=== PATIENT | male | born 1935 | race Caucasian/White ===

== ENCOUNTER 2017-03-25 10:00 | Day surgery (SDC) | payer MEDICARE ==
[~2017-03-25] VITALS: Ht 175.3 cm; Wt 83.8 kg
[~2017-03-25 10:00] MED LIST: ASPIRIN E.C. 8181 MG PO; CALCIUM 500500 M2 PO; CARDI-OMEGA1000 MG PO; LEVAQUIN 750MG750 M1 PO; MULTIPLE VITAMI1 CAP PO; NATURAL E400 IU PO; NORCO 325 MG-51 TAB PO; NORCO 325 MG-7.1 TAB PO; OSCAL 500 TAB500 MG PO; PRILOSEC 20MG20 MG PO; TYLENOL 8 HR PO; VITAMIN B1225 MCG PO; VITAMIN D32000 IU PO
[2017-03-25] MEDS ORDERED: B-12 500 MCG (10:37)
[2017-03-25 10:47] VITALS: BP 153/81; PULSE 70; TEMP 97.7
[2017-03-25 13:30] VITALS: BP 127/62; PULSE 60
[2017-03-25 13:45] VITALS: BP 125/59; PULSE 60
[2017-03-25 14:00] VITALS: BP 130/68; PULSE 59
== END 2017-03-25 14:38 | disposition home or self-care (01) ==
LOC: SDCO 10:00
DX: C50.021 Malignant neoplasm of nipple and areola, right male breast (principal); Z85.038 Personal history of other malignant neoplasm of large intestine; I10 Essential (primary) hypertension; Z96.649 Presence of unspecified artificial hip joint; Z80.3 Family history of malignant neoplasm of breast; Z95.0 Presence of cardiac pacemaker; R00.1 Bradycardia, unspecified
CPT/HCPCS: J0690; J1100; J2704; J3010; J7120

== ENCOUNTER → 2017-04-08 | Outpatient (CLI) | payer MEDICARE ==
[~2017-04-08] MED LIST changes: +B-12 500 MCG
== END ==
LOC: COL.RAD 08:11
DX: C50.921 Malignant neoplasm of unspecified site of right male breast (principal)
CPT/HCPCS: A9541

== ENCOUNTER 2017-04-09 06:37 | Day surgery (SDC) | payer MEDICARE ==
[~2017-04-09] VITALS: Ht 175.3 cm; Wt 83.2 kg
[2017-04-09] VITALS (9 sets, daily range): BP systolic 119–145; BP diastolic 54–79; PULSE 59–82; TEMP 97.5–97.8
[2017-04-10 02:31] VITALS: BP 114/60; PULSE 62; TEMP 97.8
[2017-04-10 06:27] VITALS: BP 128/61; PULSE 63; TEMP 98.5
[2017-04-10 10:05] VITALS: BP 140/78; PULSE 88; TEMP 98.6
== END 2017-04-10 13:46 | disposition home or self-care (01) ==
LOC: SDCO 06:37 → SURG 15:00 → SDCO 04-10 13:46
DX: C50.021 Malignant neoplasm of nipple and areola, right male breast (principal); C77.3 Secondary and unspecified malignant neoplasm of axilla and upper limb lymph nodes
CPT/HCPCS: OP; J0690; J1100; J1885; J2250; J2405; J2704; J3010; J7120; Q9968

== ENCOUNTER 2017-04-30 05:55 | Day surgery (SDC) | payer MEDICARE ==
[~2017-04-30] VITALS: Ht 175.3 cm; Wt 83.2 kg
[2017-04-30 06:23] VITALS: BP 141/72; PULSE 84; TEMP 97.8
[2017-04-30 09:23] VITALS: BP 107/68; PULSE 62; TEMP 97.6
[2017-04-30 09:55] VITALS: BP 121/72; PULSE 58
[2017-04-30 10:10] VITALS: BP 114/82; PULSE 61
== END 2017-04-30 11:30 | disposition home or self-care (01) ==
LOC: SDCO 05:55
DX: C50.921 Malignant neoplasm of unspecified site of right male breast (principal); I10 Essential (primary) hypertension; I48.91 Unspecified atrial fibrillation; I49.5 Sick sinus syndrome; K21.9 Gastro-esophageal reflux disease without esophagitis; M19.90 Unspecified osteoarthritis, unspecified site; Z90.49 Acquired absence of other specified parts of digestive tract; Z90.11 Acquired absence of right breast and nipple; Z95.0 Presence of cardiac pacemaker; Z96.643 Presence of artificial hip joint, bilateral; Z85.038 Personal history of other malignant neoplasm of large intestine; Z80.3 Family history of malignant neoplasm of breast
CPT/HCPCS: C1788; J0690; J1644; J2704; J3010; J7120

== ENCOUNTER → 2017-05-13 | Outpatient (CLI) | payer MEDICARE | LOC: COL.VAS 09:13 | DX: Z01.810 Encounter for preprocedural cardiovascular examination (principal); C50.021 Malignant neoplasm of nipple and areola, right male breast; Z79.899 Other long term (current) drug therapy; I35.1 Nonrheumatic aortic (valve) insufficiency; I35.8 Other nonrheumatic aortic valve disorders; Z95.0 Presence of cardiac pacemaker ==

== ENCOUNTER → 2017-05-19 | Outpatient (CLI) | payer MEDICARE | LOC: COL.VAS 09:50 | DX: M79.89 Other specified soft tissue disorders (principal); Z85.3 Personal history of malignant neoplasm of breast ==

== ENCOUNTER → 2017-07-30 | Outpatient (CLI) | payer MEDICARE | LOC: COL.VAS 07:49 | DX: Z51.81 Encounter for therapeutic drug level monitoring (principal); I35.1 Nonrheumatic aortic (valve) insufficiency; C50.929 Malignant neoplasm of unspecified site of unspecified male breast; Z95.0 Presence of cardiac pacemaker; Z79.899 Other long term (current) drug therapy ==

== ENCOUNTER 2017-08-22 09:30 | Outpatient (RCR) | payer MEDICARE ==
[2017-10-13] MEDS ORDERED: NEURONTIN300 MG/CAP PO (11:01)
[2017-10-13] MEDS ORDERED: TAMOXIFEN CITRA20 MG PO (11:02)
[2017-10-13] MEDS ORDERED: CEPHALEXIN250 M1 PO (12:27)
[2017-10-13] MEDS ORDERED: NORCO 325 MG-51 TAB PO (12:27)
== END 2017-10-30 | disposition home or self-care (01) ==
LOC: MKS.ESL.PT
DX: I97.2 Postmastectomy lymphedema syndrome (principal); C50.921 Malignant neoplasm of unspecified site of right male breast; Z92.21 Personal history of antineoplastic chemotherapy; Z90.11 Acquired absence of right breast and nipple; Z95.0 Presence of cardiac pacemaker
CPT/HCPCS: G8990-GP; G8991-GP

== ENCOUNTER 2017-10-13 10:38 | Emergency (ER) | payer MEDICARE ==
[~2017-10-13] VITALS: Ht 175.3 cm; Wt 83.2 kg
[2017-10-13 10:43] VITALS: TEMP 99.5
[2017-10-13] MEDS ORDERED: NEURONTIN300 MG/CAP PO (11:01)
[2017-10-13] MEDS ORDERED: TAMOXIFEN CITRA20 MG PO (11:02)
[2017-10-13] MEDS ORDERED: NORCO 325 MG-51 TAB PO (12:27)
[2017-10-13] MEDS ORDERED: CEPHALEXIN250 M1 PO (12:27)
[2017-10-13 13:07] VITALS: BP 140/64; PULSE 63
== END 2017-10-13 13:04 | disposition home or self-care (01) ==
LOC: COL.ER 10:38
DX: S61.412A Laceration without foreign body of left hand, initial encounter (principal); S61.215A Laceration without foreign body of left ring finger without damage to nail, initial encounter; Z23 Encounter for immunization; Z85.3 Personal history of malignant neoplasm of breast; Z85.038 Personal history of other malignant neoplasm of large intestine; Z87.891 Personal history of nicotine dependence; Z95.0 Presence of cardiac pacemaker; W31.2XXA Contact with powered woodworking and forming machines, initial encounter; Y92.009 Unspecified place in unspecified non-institutional (private) residence as the place of occurrence of the external cause

== ENCOUNTER → 2017-10-24 | Outpatient (CLI) | payer MEDICARE ==
[~2017-10-24] MED LIST changes: +CEPHALEXIN250 M1 PO; +NEURONTIN300 MG/CAP PO; +TAMOXIFEN CITRA20 MG PO
== END ==
LOC: COL.VAS 09:51
DX: Z01.810 Encounter for preprocedural cardiovascular examination (principal); C50.021 Malignant neoplasm of nipple and areola, right male breast; I08.1 Rheumatic disorders of both mitral and tricuspid valves; Z95.0 Presence of cardiac pacemaker

== ENCOUNTER → 2018-01-14 | Outpatient (CLI) | payer MEDICARE | LOC: COL.VAS 09:49 | DX: I08.1 Rheumatic disorders of both mitral and tricuspid valves (principal); Z92.21 Personal history of antineoplastic chemotherapy ==

== ENCOUNTER → 2018-01-29 | Outpatient (RCR) | payer MEDICARE | END | disposition home or self-care (01) | LOC: MKS.ESL.PT | DX: I97.89 Other postprocedural complications and disorders of the circulatory system, not elsewhere classified (principal); Z85.3 Personal history of malignant neoplasm of breast; Z98.890 Other specified postprocedural states | CPT/HCPCS: G8990-GP; G8991-GP ==

== ENCOUNTER 2018-04-29 10:45 | Outpatient (RCR) | payer MEDICARE | END 2018-05-12 | disposition home or self-care (01) | LOC: MKS.ESL.PT | DX: I89.0 Lymphedema, not elsewhere classified (principal); C50.021 Malignant neoplasm of nipple and areola, right male breast | CPT/HCPCS: G8990-GP; G8991-GP ==

== ENCOUNTER 2019-01-04 09:26 | Outpatient (RCR) | payer MEDICARE | END 2019-03-09 10:24 | disposition home or self-care (01) | LOC: MKS.ESL.PT 09:26 | DX: I89.0 Lymphedema, not elsewhere classified (principal); Z85.3 Personal history of malignant neoplasm of breast; Z98.890 Other specified postprocedural states; Z89.012 Acquired absence of left thumb; Z92.21 Personal history of antineoplastic chemotherapy; Z95.0 Presence of cardiac pacemaker ==

== ENCOUNTER 2020-09-06 08:45 | Outpatient (RCR) | payer MEDICARE | END 2020-09-19 | disposition home or self-care (01) | LOC: MKS.ESL.PT | DX: C50.021 Malignant neoplasm of nipple and areola, right male breast (principal); I89.0 Lymphedema, not elsewhere classified ==

== ENCOUNTER 2020-11-13 14:45 | Outpatient (RCR) | payer MEDICARE | END 2020-11-20 | disposition home or self-care (01) | LOC: MKS.ESL.PT | DX: I89.0 Lymphedema, not elsewhere classified (principal); Z85.3 Personal history of malignant neoplasm of breast; Z98.890 Other specified postprocedural states ==

== ENCOUNTER 2021-01-08 12:59 | Outpatient (RCR) | payer MEDICARE | END 2021-04-08 | disposition home or self-care (01) | LOC: MKS.ESL.PT | DX: I89.0 Lymphedema, not elsewhere classified (principal); Z85.3 Personal history of malignant neoplasm of breast; Z98.890 Other specified postprocedural states ==

== ENCOUNTER 2021-11-18 09:16 | Emergency (ER) | payer MEDICARE ==
[~2021-11-18] VITALS: Ht 172.7 cm; Wt 95.5 kg
[2021-11-18 09:24] VITALS: TEMP 98.2
[2021-11-18 10:26] LABS: BASO # 0.1 K/mm3 (0.0-0.2); BASO % 1.1 % (0.0-2.0); EOS # 0.2 K/mm3 (0.0-0.7); EOS % 3.6 % (0.0-4.0); GRAN # 4.5 K/mm3 (1.4-6.5); GRAN % 68.2 % (42.2-75.2); HEMATOCRIT 37.9 % (42.0-52.0); HEMOGLOBIN 12.7 g/dl (13.5-18.0); LYMPH # 1.1 K/mm3 (1.2-3.4); LYMPH % 16.3 % (20.0-51.0); MEAN CELL VOLUME 96 fl (80.0-100.0); MEAN CORPUSCULAR HEMOGLOBIN 32 pg (27-31); MEAN CORPUSCULAR HGB CONC 34 g/dl (33.0-37.0); MEAN PLATELET VOLUME 10.1 fl (7.4-10.4); MONO # 0.7 K/mm3 (0.1-0.6); MONO % 10.2 % (1.7-9.3); PLATELET COUNT 249 K/mm3 (130-400); RED BLOOD COUNT 3.96 M/mm3 (4.20-5.60); REDCELL DISTRIBUTION WIDTH-CV 12.8 % (11.5-14.5)
[2021-11-18 10:44] LABS: BILIRUBIN,TOTAL 0.4 mg/dL (0.2-1.2); CALCIUM 9.5 mg/dL (8.4-10.2); CREATININE, serum 1.09 mg/dL (0.72-1.25); POTASSIUM 4.4 mmol/L (3.5-4.5); TOTAL PROTEIN 7.1 gm/dL (6.2-8.1)
[2021-11-18 10:49] LABS: TROPONIN-I 0.021 ng/mL (0.00-0.033)
[2021-11-18 11:25] VITALS: BP 152/85; PULSE 60
== END 2021-11-18 11:29 | disposition home or self-care (01) ==
LOC: COL.ER 09:16
PROVIDERS: Family Medicine
DX: I10 Essential (primary) hypertension (principal); F41.9 Anxiety disorder, unspecified; G62.9 Polyneuropathy, unspecified; Z79.899 Other long term (current) drug therapy; Z87.891 Personal history of nicotine dependence

== ENCOUNTER 2023-02-07 08:05 | Day surgery (SDC) | payer MEDICARE ==
[~2023-02-07] VITALS: Ht 175.3 cm; Wt 91.2 kg
[~2023-02-07 08:05] MED LIST changes: +ASPIRIN 81M81 MG/TA2 PO; -B-12 500 MCG; +BETAPACE 80MG80 MG PO; -CARDI-OMEGA1000 MG PO; +COSOPT 2%-0.5%10 ML OU; -MULTIPLE VITAMI1 CAP PO; +MULTIPLE VITAMI1 TA5 PO; +OMEGA-3 1000 MG1 CAP PO; +PHARMASSURE ZIN50 MG PO; +VITAMIN B12 781 TAB PO; +VITAMIN D 400400 IU PO; -VITAMIN D32000 IU PO; +XALATAN EYE DROPS OD
[2023-02-07 08:24] VITALS: BP 136/79; PULSE 79; TEMP 98.1
[2023-02-07 10:00] VITALS: BP 104/56; PULSE 66; TEMP 98.1
--- NOTE | 2023-02-07 10:00 | NUR ---
1000 PATIENT RETURNS TO ROOM 9 VIA CART. PATIENT IS ALERT AND ORIENTED. PATIENT AMBULATES TO RECLINER WITH THE ASSISTANCE OF 2 NURSES. RESPIRATIONS EVEN AND UNLABORED. VITAL SIGNS OBTAINED. PATIENT DAUGHTER AND IN ROOM. PATIENT REQUESTED A MUFFIN AND COFFEE, NO DIFFICULTIES SWALLOWING. 1025 DISCHARGE INSTRUCTIONS REVIEWED WITH PATIENT AND PATIENT FAMILY. BOTH VERBALIZED UNDERSTANDING. 1030 THIS NURSE DE ACCESSED PORT, FIRST BY FLUSHING WITH NS. NO BLEEDING NOTED AT SIGHT. 1045 DOCTOR IN TO SPEAK WITH PATIENT. 1050 PATIENT DISCHARGED FROM UNIT VIA WHEELCHAIR IN STABLE CONDITION.
[2023-02-07 10:15] VITALS: BP 121/62; PULSE 64
[2023-02-07 10:30] VITALS: BP 127/75; PULSE 65
== END 2023-02-07 10:50 | disposition home or self-care (01) ==
LOC: SDCO 08:05
DX: K62.6 Ulcer of anus and rectum (principal); K62.5 Hemorrhage of anus and rectum; K21.9 Gastro-esophageal reflux disease without esophagitis; Z85.038 Personal history of other malignant neoplasm of large intestine; Z98.0 Intestinal bypass and anastomosis status; Z92.3 Personal history of irradiation; Z87.891 Personal history of nicotine dependence
CPT/HCPCS: J2704; J7120

== ENCOUNTER 2023-11-12 05:57 | Observation (INO) | payer MEDICARE ==
[2023-11-12] VITALS (11 sets, daily range): BP systolic 122–155; BP diastolic 61–84; PULSE 60–93; TEMP 97.6–98.3
[~2023-11-12] VITALS: Ht 172.7 cm; Wt 89.9 kg
[~2023-11-12 05:57] MED LIST changes: -XALATAN EYE DROPS OD; +XALATAN EYE DROPS OU
[2023-11-12 06:51] LABS: BASO # 0.1 K/mm3 (0.0-0.2); BASO % 1.1 % (0.0-2.0); EOS # 0.2 K/mm3 (0.0-0.7); EOS % 2.2 % (0.0-4.0); GRAN # 6.4 K/mm3 (1.4-6.5); GRAN % 78.9 % (42.2-75.2); HEMATOCRIT 35.5 % (42.0-52.0); HEMOGLOBIN 11.6 g/dl (13.5-18.0); LYMPH # 0.7 K/mm3 (1.2-3.4); LYMPH % 8.4 % (20.0-51.0); MEAN CELL VOLUME 99 fl (80.0-100.0); MEAN CORPUSCULAR HEMOGLOBIN 32 pg (27-31); MEAN CORPUSCULAR HGB CONC 33 g/dl (33.0-37.0); MEAN PLATELET VOLUME 10.7 fl (7.4-10.4); MONO # 0.8 K/mm3 (0.1-0.6); MONO % 9.2 % (1.7-9.3); PLATELET COUNT 260 K/mm3 (130-400); RED BLOOD COUNT 3.59 M/mm3 (4.20-5.60); REDCELL DISTRIBUTION WIDTH-CV 13.3 % (11.5-14.5)
[2023-11-12 07:07] LABS: ALBUMIN 3.5 gm/dL (3.4-4.8); BILIRUBIN,TOTAL 0.8 mg/dL (0.2-1.2); CALCIUM 9.3 mg/dL (8.4-10.2); CREATININE, serum 1.21 mg/dL (0.72-1.25); POTASSIUM 4.5 mmol/L (3.5-4.5); TOTAL PROTEIN 6.5 gm/dL (6.2-8.1)
[2023-11-12 07:13] LABS: TROPONIN-I 0.013 ng/mL (0.00-0.033)
--- NOTE | 2023-11-12 12:58 | NUR ---
Patient admitted to unit around 1045. Patient is alert and oriented x4, denies pain. Complains of light headedness and shortness of breath. Gait is steady, fall precautions in place due to being light headed. Uses cane at home. Skin is intact, dryness noted. 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 VS stable on room air. Currently off unit for cardiac procedure.
--- NOTE | 2023-11-12 17:07 | NUR ---
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 Patient alert and oriented x4, denies pain. VS stable following procedure, three elevated blood pressures noted during ambulation to bathroom and during meal. Ranged from 150s-160s/70s-80s. Pacemaker site CDI, no hematoma noted. Ice pack applied to site. Patient resting in bed at this time with call light in reach and bed alarm on. I/O sheet on door to monitor fluids. Patient tolerating food and fluids well. All needs met at this time.
--- NOTE | 2023-11-12 20:30 | NUR ---
Assessment complete. A&Ox4. Denies pain/nausea/shortness of breath. VS stable. Dressing to left chest CDI-gauze. TELE reporting paced regular. Refusing ice to site. INT to left FA flushes without difficulty. Currently on RA. Plan of care discussed for this shift to include meds/pain control/EKG/calling for questions/concerns. Verbalizes understanding. Call light in reach. Will monitor.
[2023-11-13] VITALS (9 sets, daily range): BP systolic 123–159; BP diastolic 60–79; PULSE 59–66; TEMP 97.9–98.3
--- NOTE | 2023-11-13 04:58 | NUR ---
Patient had an uneventful night. Denied pain/nausea/shortness of breath. VS stable. Dressing to left chest CDI. INT to left FA flushes without difficulty. Denies current needs. Call light in reach. Will monitor.
[2023-11-13 07:11] LABS: BASO % 0.6 % (0.0-2.0); EOS # 0.2 K/mm3 (0.0-0.7); EOS % 2.6 % (0.0-4.0); GRAN # 4.5 K/mm3 (1.4-6.5); HEMOGLOBIN 10.1 g/dl (13.5-18.0); LYMPH # 0.8 K/mm3 (1.2-3.4); LYMPH % 12.8 % (20.0-51.0); MEAN CELL VOLUME 99 fl (80.0-100.0); MEAN CORPUSCULAR HEMOGLOBIN 32 pg (27-31); MEAN CORPUSCULAR HGB CONC 32 g/dl (33.0-37.0); MEAN PLATELET VOLUME 10.6 fl (7.4-10.4); MONO # 0.9 K/mm3 (0.1-0.6); MONO % 13.5 % (1.7-9.3); PLATELET COUNT 233 K/mm3 (130-400); RED BLOOD COUNT 3.21 M/mm3 (4.20-5.60); REDCELL DISTRIBUTION WIDTH-CV 13.4 % (11.5-14.5)
[2023-11-13 07:23] LABS: HEMATOCRIT 31.7 % (42.0-52.0)
[2023-11-13 07:27] LABS: CREATININE, serum 1.07 mg/dL (0.72-1.25); PHOSPHOROUS 3.1 mg/dL (2.3-4.7); POTASSIUM 3.7 mmol/L (3.5-4.5)
[2023-11-13] MEDS ORDERED: CEPHALEXIN500 M1 PO (13:38)
== END 2023-11-13 15:15 | disposition home or self-care (01) ==
LOC: COL.ER 05:57 → MEDICAL 09:06
PROVIDERS: Personal Emergency Response Attendant; ADMIT Internal Medicine
DX: Z45.010 Encounter for checking and testing of cardiac pacemaker pulse generator [battery] (principal); I49.5 Sick sinus syndrome; Z66 Do not resuscitate; I48.92 Unspecified atrial flutter; I48.91 Unspecified atrial fibrillation; I11.0 Hypertensive heart disease with heart failure; I50.9 Heart failure, unspecified; E78.5 Hyperlipidemia, unspecified; I97.2 Postmastectomy lymphedema syndrome; K21.9 Gastro-esophageal reflux disease without esophagitis; Z85.3 Personal history of malignant neoplasm of breast; Z85.038 Personal history of other malignant neoplasm of large intestine; Z79.82 Long term (current) use of aspirin; Z90.49 Acquired absence of other specified parts of digestive tract; Z87.891 Personal history of nicotine dependence; Z92.21 Personal history of antineoplastic chemotherapy; Z92.3 Personal history of irradiation
CPT/HCPCS: C1785; G0378; J0665; J0690; J1940; J1956; J2250; J3010; J7030